=== PATIENT | male | born 1990 | race Caucasian/White ===

== ENCOUNTER 2016-12-05 14:31 | Emergency (ER) | payer BC ==
[~2016-12-05] VITALS: Ht 180.3 cm; Wt 73.0 kg
[~2016-12-05 14:31] MED LIST: ALPRAZOLAM0.5 MG PO; ATIVAN0.5 MG PO; BACTRIM,SEPT1 TABLET PO; CLINDAMYCIN HC300 MG PO; CONCERTA36 MG PO; EFFEXOR XR75 MG PO; FLEXERIL10 MG PO; GABAPENTIN300 MG PO; GEODON40 MG PO; KEFLEX500 MG PO; LAMICTAL150 MG PO; LAMICTAL25 MG PO; LITHIUM CARBON300 MG PO; LITHIUM CARBON600 MG PO; METHYLPHENIDATE36 MG PO; MOTRIN800 MG PO; NAPROSYN500 MG PO; PAXIL20 MG PO; PERCOCET 10/1 TABLET PO; PERCOCET 5/31 TABLET PO; PREDNISONE20 MG PO; PREDNISONE50 MG PO; PRILOSEC20 MG PO; PROZAC10 MG PO; SEROQUEL50 MG PO; TRAMADOL HCL50 MG PO; ULTRACET1 TABLET PO; VIIBRYD40 MG PO; XANAX0.5 MG PO; ZIPRASIDONE HCL20 MG PO; ZOFRAN4 MG PO
[2016-12-05 14:45] VITALS: BP 123/87
== END 2016-12-05 16:30 | disposition left against medical advice (07) ==
LOC: EME 14:31
DX: L02.419 Cutaneous abscess of limb, unspecified (principal); Z53.21 Procedure and treatment not carried out due to patient leaving prior to being seen by health care provider

== ENCOUNTER 2017-02-28 23:07 | Emergency (ER) | payer BC ==
[~2017-02-28] VITALS: Ht 180.3 cm; Wt 70.0 kg
[2017-03-01] MEDS ORDERED: NORCO 5/3251 TABLET PO (00:34)
[2017-03-01] MEDS ORDERED: NAPROSYN500 MG PO (00:34)
[2017-03-01 01:46] VITALS: BP 115/62
== END 2017-03-01 01:49 | disposition home or self-care (01) ==
LOC: EME 23:07 → EXP 23:07
DX: S93.401A Sprain of unspecified ligament of right ankle, initial encounter (principal); S93.601A Unspecified sprain of right foot, initial encounter; X50.1XXA Overexertion from prolonged static or awkward postures, initial encounter; Y93.51 Activity, roller skating (inline) and skateboarding
CPT/HCPCS: 73610; 73630; 99281; 99283

== ENCOUNTER 2017-06-08 20:24 | Emergency (ER) | payer BC ==
[~2017-06-08] VITALS: Ht 180.3 cm; Wt 70.5 kg
[~2017-06-08 20:24] MED LIST changes: +NORCO 5/3251 TABLET PO
[2017-06-08 21:21] LABS: HEMATOCRIT 44.3 % (38.0-50.0); MCH 29.5 PG (29.0-34.0); MCHC 34.1 G/DL (30.0-36.0); MCV 86.5 FL (86-99); MEAN PLAT.VOLUME 9.7 uM^3 (9.0-12.4); PLATELET COUNT 293 K/uL (156-360); RBC DIS.WIDTH-CV 12.7 % (11.8-14.6); RBC DIS.WIDTH-SD 40.2 % (39-53); RED BLOOD COUNT 5.12 M/uL (4.00-5.50); WHITE BLOOD COUNT 9.8 K/uL (4.1-10.2)
[2017-06-08 21:27] LABS: CHLORIDE 101 mEq/L (99-109); POTASSIUM 3.7 mEq/L (3.7-5.4); SODIUM 138 mEq/L (136-147)
[2017-06-08 21:29] LABS: GLUCOSE 87 mg/dL (70-99)
[2017-06-08 21:30] LABS: ANION GAP 11 MEQ/L (2-14)
[2017-06-08 21:31] LABS: TOTAL BILIRUBIN 0.5 mg/dL (0.0-1.0)
[2017-06-08 21:32] LABS: ALKALINE PHOSPHATASE 80 IU/L (3-129)
[2017-06-08 21:33] LABS: GFR ESTIMATE (CALCULATED) > 59 mL/min/
[2017-06-08 21:34] LABS: UREA NITROGEN (BUN) 15 mg/dL (9-23)
[2017-06-08] MEDS ORDERED: ZOFRAN ODT4 MG PO (22:21)
[2017-06-08 22:32] VITALS: BP 141/76
== END 2017-06-08 22:33 | disposition home or self-care (01) ==
LOC: EME 20:24 → RME 20:24
DX: B34.9 Viral infection, unspecified (principal); Z87.891 Personal history of nicotine dependence
CPT/HCPCS: 80053; 85027; 99281; 99284

== ENCOUNTER 2018-03-16 20:45 | Emergency (ER) | payer OTHER ==
[~2018-03-16] VITALS: Ht 180.3 cm; Wt 67.9 kg
[~2018-03-16 20:45] MED LIST changes: +ZOFRAN ODT4 MG PO
[2018-03-16 23:15] VITALS: BP 133/74
== END 2018-03-16 23:15 | disposition home or self-care (01) ==
LOC: EME 20:45
PROC: 0HQFXZZ Repair Right Hand Skin, External Approach (ICD-10-PCS; principal; 2018-03-16)
DX: S61.411A Laceration without foreign body of right hand, initial encounter (principal); W22.8XXA Striking against or struck by other objects, initial encounter; W26.8XXA Contact with other sharp object(s), not elsewhere classified, initial encounter; J44.9 Chronic obstructive pulmonary disease, unspecified; F32.9 Major depressive disorder, single episode, unspecified; G89.29 Other chronic pain; F17.200 Nicotine dependence, unspecified, uncomplicated
CPT/HCPCS: 73130; 99281; 99284